=== PATIENT | male | born 1945 | race Caucasian/White ===

== ENCOUNTER 2017-03-20 14:01 | Emergency (ER) | payer MEDICARE, OTHER ==
[~2017-03-20 14:01] MED LIST: Iopamidol 370 76% 125 ML VIAL FS ONE
[2017-03-20 14:41] LABS: #Basophils 0.2 thou/uL (0.0-0.2); #Eosinphils 0.3 thou/uL (0.0-0.7); #Lymphocytes 1.2 thou/uL (1.20-3.40); #Monocytes 0.9 thou/uL (0.11-0.59); #Neutrophils 7.7 thou/uL (1.40-6.50); %Basophils 1.6 % (0.0-1.0); %Eosinophils 3.4 % (0.0-10.0); %Lymphocytes 11.4 % (21.0-51.0); %Monocytes 8.5 % (0.0-10.0); %Neutrophils 75.1 % (42.0-75.0); Hemoglobin 15.3 g/dL (14.0-18.0); Mean Corpuscular HGB CONC 34.8 g/dL (32.0-36.0); Mean Corpuscular Hemoglobin 32.3 pg (27.0-31.0); Mean Corpuscular Volume 92.9 fl (80.0-94.0); Mean Platelet Volume 7.6 fL (7.4-10.4); Platelet Count 228 thou/uL (130-400); RBC Distribution Width 11.8 % (11.5-14.5); Red Blood Cell (RBC) Count 4.74 mill/uL (4.70-6.10); White Blood Cell (WBC) Count 10.3 thou/uL (4.8-10.8)
[2017-03-20] MEDS ORDERED: Morphine 10 MG/ML VIAL ONE (14:41)
[2017-03-20] MEDS ORDERED: Ondansetron HCl/PF 4 MG/2 ML Vial ONE (14:42)
[2017-03-20] MEDS ORDERED: Ketorolac Tromethamine 30 MG/ML VIAL ONE (14:42)
[2017-03-20 15:19] LABS: ALT (SGPT) 46 U/L (8-55); AST (SGOT) 38 U/L (5-34); Albumin 4.2 g/dL (3.4-4.8); Alkaline Phosphatase 80 U/L (40-150); Anion Gap 20 mmol/L (10-20); BUN (Urea Nitrogen) 20 mg/dL (8.4-25.7); Bilirubin, Total 0.3 mg/dL (0.2-1.2); Calc. Creatinine Clearance 0 mL/min (70-130); Calcium 9.2 mg/dL (7.8-10.44); Carbon Dioxide 20 mmol/L (23-31); Chloride 106 mmol/L (98-107); Estimated GFR-MDRD 39; Globulin 3.5 g/dL (2.4-3.5); Glucose 206 mg/dL (83-110); Lipase 96 U/L (8-78); Potassium 3.9 mmol/L (3.5-5.1); Protein, Total 7.7 g/dL (5.8-8.1); Sodium 142 mmol/L (136-145)
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
== END 2017-03-20 18:01 | disposition home or self-care (01) ==
LOC: MADERS 14:01
DX: S39.91XA Unspecified injury of abdomen, initial encounter (principal); Z79.84 Long term (current) use of oral hypoglycemic drugs; Z79.899 Other long term (current) drug therapy; V43.52XA Car driver injured in collision with other type car in traffic accident, initial encounter; W22.10XA Striking against or struck by unspecified automobile airbag, initial encounter
CPT/HCPCS: 70450; 70486; 71260; 72125; 74177; 80053; 83690; 85025; 96374; 96375; J1885; J2270; J2405